=== PATIENT | female | born 1975 | race Two or more races ===

== ENCOUNTER 2016-05-23 15:12 | Emergency (ER) | payer SELFPAY ==
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
[2016-05-23] MEDS ORDERED: LORAZEPAM 1 MG TABLET PO ONE (16:22)
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
[2016-05-23 17:50] VITALS: BP 115/70
== END 2016-05-23 17:30 | disposition home or self-care (01) ==
LOC: ER 15:12
DX: F41.9 Anxiety disorder, unspecified (principal); W01.0XXA Fall on same level from slipping, tripping and stumbling without subsequent striking against object, initial encounter
CPT/HCPCS: 99283

== ENCOUNTER 2016-10-10 07:28 | Emergency (ER) | payer OTHER ==
[2016-10-10] MEDS ORDERED: KETOROLAC TROMETHAMINE INJ/PF 30 MG/1 ML SDV IV ONE (07:53)
[2016-10-10] MEDS ORDERED: ONDANSETRON HCL INJ/PF 4 MG/2 ML SDV IV ONE (07:53)
[2016-10-10] MEDS ORDERED: NORMAL SALINE 1000 ML 1,000 ML IV ONE ×2 (07:54→09:09)
--- NOTE | 2016-10-10 08:29 | RADIOLOGY REPORT (SQ) ---
EXAM DESCRIPTION: CT FACIAL AREA WITHOUT COMPLETED DATE/TIME: 10/10/2016 8:13 am REASON FOR STUDY: possible jaw dislocation v fracture COMPARISON: None. TECHNIQUE: Noncontrasted images through the facial bones and orbits windowed for bone and soft tissu e. Additional coronal and sagittal reconstructed images reviewed. All images stored on PACS. All CT scanners at this facility use dose modulation, iterative reconstruction, and/or weight based d osing when appropriate to reduce radiation dose to as low as reasonably achievable (ALARA). [facility]: Dose Right [facility]: CareDose [facility]: Dose Right [facility]: Teradose 4D [facility]: PhotoThera RADIATION DOSE: 30.40 mGy. LIMITATIONS: None. FINDINGS: FACIAL BONES: No fractures are demonstrated. Both TMJ joints are dislocated. The right a nd left mandibular heads are displaced anteriorly in relation to the normal position. ORBITS: Intact. No fracture. Symmetric intact globes and retroorbital soft tissues. PARANASAL SINUSES: There is chronic maxillary sinusitis with calcification present. 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 The right ostiomeatal unit is occluded. The left is patent. SOFT TISSUES: No mass or edema. INFERIOR BRAIN: Limited view. No acute findings. OTHER: There is lucency in the posterior left lateral aspect of the maxilla consistent with cavity. IMPRESSION: The mandibular heads are displaced anteriorly bilaterally. No underlying fracture. TECHNICAL DOCUMENTATION: JOB ID: [id number] Quality ID # [id number]: Final reports with documentation of one or more dose reduction techniques (e.g., Au tomated exposure control, adjustment of the mA and/or kV according to patient size, use of iterative reconstruction technique) 2010 [employer]- All Rights Reserved
[2016-10-10] MEDS ORDERED: MIDAZOLAM 2 MG/2 ML INJ IV ONE (09:07)
[2016-10-10] MEDS ORDERED: KETAMINE HCL INJ 500 MG/10 ML VIAL IV ONE (09:08)
--- NOTE | 2016-10-10 11:24 | ER Document Report ---
ED General - General Chief Complaint: Jaw Pain Stated Complaint: JAW PAIN Time Seen by Provider: 10/10/16 07:53 TRAVEL OUTSIDE OF THE [place] IN LAST 30 DAYS: No - HPI Patient complains to provider of: Jaw dislocation Notes: Patient coming in for jaw dislocation. Patient states history of dilatation in the past but she woke up this way. Patient states she is having a lot of pain especially right side of her jaw. Patient denies any fever chills nausea vomiting. Patient denies any trauma - Related Data Allergies/Adverse Reactions: No Known Allergies Allergy (Verified 10/10/16 07:32) Past Medical History - Social History Smoking Status: Never Smoker Chew tobacco use (# tins/day): No Frequency of alcohol use: None Drug Abuse: None Family History: Reviewed & Not Pertinent Patient has suicidal ideation: No Patient has homicidal ideation: No Renal/ Medical History: Denies: Hx Peritoneal Dialysis Surgical Hx: Negative - Immunizations Hx Diphtheria, Pertussis, Tetanus Vaccination: Yes Review of Systems - Review of Systems Constitutional: Other - Jaw dislocation EENT: No symptoms reported Cardiovascular: No symptoms reported Respiratory: No symptoms reported Gastrointestinal: No symptoms reported Genitourinary: No symptoms reported Female Genitourinary: No symptoms reported Musculoskeletal: No symptoms reported Skin: No symptoms reported Hematologic/Lymphatic: No symptoms reported Neurological/Psychological: No symptoms reported Physical Exam - Vital signs Vitals: Temp Pulse Resp BP Pulse Ox 98 F 73 20 112/63 100 10/10/16 07:32 10/10/16 07:32 10/10/16 07:32 10/10/16 07:32 10/10/16 07:32 Interpretation: Normal - General General appearance: Appears well, Alert - HEENT Head: Normocephalic, Atraumatic Eyes: Normal Pupils: PERRL Notes: Patient is unable to move her jaw to close it. Patient has her mouth open able to tolerate secretions at this time no signs or impending respiratory distress - Respiratory Respiratory status: No respiratory distress Chest status: Nontender Breath sounds: Normal Chest palpation: Normal - Cardiovascular Rhythm: Regular Heart sounds: Normal auscultation Murmur: No - Abdominal Inspection: Normal Distension: No distension Bowel sounds: Normal Tenderness: Nontender Organomegaly: No organomegaly - Back Back: Normal, Nontender - Extremities General upper extremity: Normal inspection, Nontender, Normal color, Normal ROM , Normal temperature General lower extremity: Normal inspection, Nontender, Normal color, Normal ROM , Normal temperature, Normal weight bearing. No: Kalyani's sign - Neurological Neuro grossly intact: Yes Cognition: Normal Orientation: AAOx4 [place] Coma Scale Eye Opening: Spontaneous [place] Coma Scale Verbal: Oriented [place] Coma Scale Motor: Obeys Commands Pily Coma Scale Total: 15 Speech: Normal Motor strength normal: LUE, RUE, LLE, RLE Sensory: Normal - Psychological Associated symptoms: Normal affect, Normal mood - Skin Skin Temperature: Warm Skin Moisture: Dry Skin Color: Normal Course - Re-evaluation Re-evalutation: 10/10/16 14:45 Patient was given Versed ketamine after the ketamine was pushed it was noted that the patient's IV had infiltrated. Patient was still awake. A second IV was established however by this time becoming that was given to the infiltrated IV more likely absorbed as the patient now sedated. Reduction was performed without difficulty. Patient was tolerating monitored here in the family to pick her up. - Vital Signs Vital signs: Temp Pulse Resp BP Pulse Ox 98 F 66 18 120/88 H 100 10/10/16 07:32 10/10/16 14:05 10/10/16 14:05 10/10/16 14:05 10/10/16 14:05 Procedures - Conscious Sedation Conscious sedation Time started: 09:30 Time completed: 09:45 Consent obtained: Yes Indication: No dislocation Last meal: Night prior to arrival Prior complications: Procedural sedation Normal healthy pt.: P1. - ASA Classification Airway Evaluation: Normal anatomy Mallampati Classification: Class 1 Used during procedure: Suction available, IV access obtained, Pulse ox on pt., school bus monitor on pt. Medications administered: Versed, Ketamine Reversal agents: None I personally performed/intraservice time: Sedation, Procedure, 30 min or less Complications: No - Joint Reduction/Fracture Care Head Consent obtained: Yes Conscious sedation: Yes Pre-procedure NV exam: Yes Manipulation comment: Gentle traction Post-procedure NV exam: Yes Post-reduction x-ray: Joint reduced Reduction attempts: 1 Complications: No Notes: 10/10/16 14:47 Patient's jaw was reduced Discharge - Discharge Clinical Impression: Jaw dislocation Qualifiers: Encounter type: initial encounter Qualified Code(s): S03.00XA - Dislocation of jaw, unspecified side, initial encounter Condition: Stable Disposition: HOME, SELF-CARE Instructions: Jaw Dislocation ([facility]), Post Sedation Instructions ([facility]) Additional Instructions: You may follow-up with your doctor as needed. Please refrain from excessive yawning Forms: Return to Work
[2016-10-10 13:49] VITALS: BP 120/88
== END 2016-10-10 14:05 | disposition home or self-care (01) ==
LOC: ER 07:28
PROC: 0RSCXZZ Reposition Right Temporomandibular Joint, External Approach (ICD-10-PCS; principal; 2016-10-10)
DX: S03.01XA Dislocation of jaw, right side, initial encounter (principal); X58.XXXA Exposure to other specified factors, initial encounter
CPT/HCPCS: 99284; 96361; 99152; 96374; 96375; 70486; 21480; J2250; J3490; J1885; J2405; J7030